=== PATIENT | male | born 1945 | race Caucasian/White ===

== ENCOUNTER 2021-08-16 18:05 | Emergency (ER) | payer OTHER ==
[2021-08-16 18:22] VITALS: BP 110/67; TEMP 97.7; BMI 21.1
[2021-08-16] MEDS ORDERED: ONDANSETRON 4 MG/2 ML VIAL IVPUSH ONE (19:25)
[2021-08-16] MEDS ORDERED: SODIUM CHLORIDE 0.9% 500 ML INFUS.BAG IV ONE ×3 (19:25→20:42)
[2021-08-16 20:13] LABS: BASO % 0.4 % (0-2.0); EOS % 0.3 % (0-4.5); HEMATOCRIT 45.8 % (35.4-49); HEMOGLOBIN 15.8 GM/dL (11.7-16.9); MCH 31.1 pg (25.7-33.7); MCHC 34.5 g/dl (32.0-35.9); MEAN CELL VOLUME 90.1 fl (80-96); MEAN PLT VOLUME 8.3 fl (7.5-11.1); MONO % 13.7 % (3.8-10.2); NEUT % 64.6 % (42.8-82.8); PLATELET COUNT 271 10^3/uL (134-434); RBC 5.08 M/mm3 (4.00-5.60); RDW 14.8 % (11.9-15.9); WHITE BLOOD COUNT 9.1 K/mm3 (4.0-10.0)
[2021-08-16 20:14] LABS: ALBUMIN 4.8 g/dl (3.4-5.0); CALCIUM 9.8 mg/dL (8.5-10.1)
[2021-08-16 20:15] LABS: BLOOD UREA NITROGEN 34.5 mg/dL (7-18)
[2021-08-16 20:18] LABS: EPI CELLS 25 /uL (0-25.1); HYALINE CASTS 29 /uL (0-3.1); URINE APPEARANCE CLOUDY; URINE BACTERIA 7 /uL (0-1359); URINE BILIRUBIN NEGATIVE (NEGATIVE); URINE COLOR DK YELLOW; URINE GLUCOSE (UA) NEGATIVE (NEGATIVE); URINE KETONE TRACE (NEGATIVE); URINE LEUK ESTERASE NEGATIVE (NEGATIVE); URINE NITRITE NEGATIVE (NEGATIVE); URINE PROTEIN 2+ (NEGATIVE); URINE RBC 11 /uL (0-23.9); URINE UROBILINOGEN 0.2 mg/dL (0.2-1.0); URINE WBC 20 /uL (0-25.8)
[2021-08-16 20:19] LABS: BILIRUBIN,TOTAL 0.6 mg/dL (0.2-1); TOT PROT 8.6 g/dl (6.4-8.2)
[2021-08-16 22:13] LABS: BLOOD UREA NITROGEN 33.3 mg/dL (7-18)
[2021-08-16 22:16] LABS: CREATININE 1.3 mg/dL (0.55-1.3)
[2021-08-16 22:34] VITALS: PULSE 85
== END 2021-08-16 22:53 | disposition home or self-care (01) ==
LOC: JER 18:05
PROC: 3E033GC Introduction of Other Therapeutic Substance into Peripheral Vein, Percutaneous Approach (ICD-10-PCS; principal; 2021-08-16)
DX: R11.2 Nausea with vomiting, unspecified (principal); R19.7 Diarrhea, unspecified
CPT/HCPCS: 36415; 80048; 80053; 81003; 85025; 87086; 99284-25

== ENCOUNTER 2024-02-29 12:06 | Observation (INO) | payer OTHER ==
[2024-02-29 12:32] VITALS: BMI 21.7
[2024-02-29] MEDS ORDERED: ACETAMINOPHEN 325 MG TABLET (FP) ONE (13:33)
[2024-02-29] MEDS ORDERED: KETOROLAC TROMETHAMINE 10 MG TABLET PO ONE (13:33)
[2024-02-29] MEDS ORDERED: LIDOCAINE 4% PATCH TP ONE (13:34)
[2024-02-29] MEDS: LIDOCAINE 4% PATCH TP ONE (13:43)
[2024-02-29] MEDS: KETOROLAC TROMETHAMINE 10 MG TABLET PO ONE (13:44)
[2024-02-29] MEDS: ACETAMINOPHEN 325 MG TABLET (FP) PO ONE (13:45)
[2024-02-29 15:58] LABS: BASO % 0.7 % (0-2.0); EOS % 1.7 % (0-4.5); HEMATOCRIT 37.2 % (35.4-49); HEMOGLOBIN 12.7 GM/dL (11.7-16.9); LYMPH % 37.4 % (8-40); MEAN CELL VOLUME 88.2 fl (80-96); MEAN PLT VOLUME 7.3 fl (7.5-11.1); MONO % 9.1 % (3.8-10.2); NEUT % 51.1 % (42.8-82.8); PLATELET COUNT 268 10^3/uL (134-434); RBC 4.22 M/mm3 (4.00-5.60); RDW 14.4 % (11.9-15.9); WHITE BLOOD COUNT 8.4 K/mm3 (4.0-10.0)
[2024-02-29 16:27] LABS: POTASSIUM 3.9 mmol/L (3.5-5.1)
[2024-02-29 16:31] LABS: ALBUMIN 3.8 g/dl (3.4-5.0); CALCIUM 8.8 mg/dL (8.5-10.1)
[2024-02-29 16:34] LABS: CREATININE 0.9 mg/dL (0.55-1.3)
[2024-02-29 16:36] LABS: BILIRUBIN,TOTAL 0.7 mg/dL (0.2-1); TOT PROT 6.8 g/dl (6.4-8.2)
[2024-02-29] MEDS ORDERED: MORPHINE SULFATE 2 MG/ML SYRINGE ONE (17:08)
[2024-02-29] MEDS: morphine SULFATE 4 MG/ML VIAL IVPUSH ONE (17:12)
[2024-02-29] MEDS ORDERED: ACETAMINOPHEN 325 MG TABLET (FP) PO PRN (22:31)
[2024-02-29 23:45] VITALS: TEMP 97
[2024-03-01] MEDS: LIDOCAINE PATCH REMOVAL MC ONE (00:26)
[2024-03-01 07:39] LABS: BASO % 0.5 % (0-2.0); EOS % 3.6 % (0-4.5); HEMATOCRIT 38.2 % (35.4-49); LYMPH % 41.6 % (8-40); MCH 30.9 pg (25.7-33.7); MCHC 34.1 g/dl (32.0-35.9); MEAN CELL VOLUME 90.6 fl (80-96); MEAN PLT VOLUME 7.8 fl (7.5-11.1); NEUT % 45.3 % (42.8-82.8); PLATELET COUNT 259 10^3/uL (134-434); RBC 4.21 M/mm3 (4.00-5.60); RDW 14.2 % (11.9-15.9); WHITE BLOOD COUNT 7.2 K/mm3 (4.0-10.0)
[2024-03-01 08:03] LABS: BLOOD UREA NITROGEN 14.6 mg/dL (7-18); CALCIUM 8.6 mg/dL (8.5-10.1)
[2024-03-01 08:07] LABS: CREATININE 0.9 mg/dL (0.55-1.3)
[2024-03-01] MEDS ORDERED: LIDOCAINE 4% PATCH TP ONE (10:25)
[2024-03-01] MEDS ORDERED: amLODIPine BESYLATE 5 MG TABLET (FP) ONE (10:25)
[2024-03-01] MEDS: LIDOCAINE 5% TOPICAL PATCH TP SCH (10:46)
[2024-03-01] MEDS: amLODIPine BESYLATE 5 MG TABLET (FP) PO SCH (10:46)
[2024-03-01 10:53] VITALS: RESP 20
[2024-03-01 15:01] VITALS: BP 150/85; PULSE 99
[2024-03-01] MEDS ORDERED: LIDOCAINE PATCH REMOVAL MC SCH (22:00)
== END 2024-03-01 18:49 | disposition home or self-care (01) ==
LOC: JER 12:06 → JERBED 21:11
PROVIDERS: ADMIT Student in an Organized Health Care Education/Training Program; ATTEND Internal Medicine
PROC: 3E033NZ Introduction of Analgesics, Hypnotics, Sedatives into Peripheral Vein, Percutaneous Approach (ICD-10-PCS; principal; 2024-02-29)
DX: M54.9 Dorsalgia, unspecified (principal); I10 Essential (primary) hypertension; E78.5 Hyperlipidemia, unspecified; Z29.89 Encounter for other specified prophylactic measures; Z86.16 Personal history of COVID-19
CPT/HCPCS: 36415; 72131-TC; 80048; 80053; 85025; 93005; 93010; 96374; 97116-GP; 97162-GP; 99285-25; G0378